=== PATIENT | female | born 1975 | race Caucasian/White ===

== ENCOUNTER 2018-05-03 05:30 | Day surgery (SDC) | payer OTHER ==
[2018-05-01 09:40] LABS: BASOPHILS 0.1 % (0-2); HEMATOCRIT 37.6 % (36.0-48.0); HEMOGLOBIN 12.5 g/dL (12-16); IMMATURE GRANULOCYTES 0.5 % (0-5); LYMPHOCYTES 26.8 % (15-50); MCH 28.3 pg (26.0-34.0); MCHC 33.2 g/dL (31.0-37.0); MCV 85.3 fL (80.0-100.0); MEAN PLATELET VOLUME 8.5 fL (7.4-10.4); MONOCYTES 4.5 % (2-11); NEUTROPHILS 66.1 % (40-80); RBC 4.41 10x6/uL (4.00-5.40); WBC 9.2 10x3/uL (4.8-10.8)
[2018-05-01 09:54] LABS: PLATELET COUNT 334 10x3/uL (130-400)
[~2018-05-03] VITALS: Ht 152.4 cm; Wt 81.2 kg
--- NOTE | ~2018-05-03 | OP ---
PATIENT NAME: ELISE BOSCH MEDICAL RECORD: [id number] :79 LOCATION:[facility] ADMISSION DATE: SURGEON: CHARISSE SIDDIQI MD DATE OF OPERATION: 05/03/2018 PREOPERATIVE DIAGNOSES: 1. Pelvic pain. 2. Menorrhagia. 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 PROCEDURES: Diagnostic laparoscopic and lysis of adhesions. SPECIMENS: None. ESTIMATED BLOOD LOSS: Minimal. INTRAVENOUS FLUIDS: Per anesthesia record. COMPLICATIONS: None apparent. DESCRIPTION OF PROCEDURE: The patient was taken to the operating room, where general anesthesia was achieved without any difficulty. The patient was then prepped and draped in normal sterile fashion in the dorsal lithotomy position in the [facility]. The bladder was drained of approximately 100 cc of clear yellow urine and a sponge stick was placed into the vagina for uterine elevation. Attention was then turned to the abdomen where a 5-mm incision was made infraumbilically and the bladeless trocar was used to enter the intraperitoneal space under direct visualization of the laparoscope. The patient was insufflated and opening pressure was found to be less than 10 mmHg. At this point, intraperitoneal placement was confirmed using the scope after the introducer was removed. Following insufflation, extensive adhesions of the omentum were noted on the previous Pfannenstiel incision site. A second bladeless trocar was then placed into the left lower quadrant under direct visualization of the laparoscope. The omentum was removed from the anterior abdominal wall revealing the uterus. The uterus was found to be densely adherent to the anterior abdominal wall obscuring the margins of the bladder. The adnexa were difficult to visualize due to the anatomic distortion. It was felt at this time due to the inability to evaluate the bladder fully and the anterior portion of the uterus that proceeding with hysteroscopy and ablation was not appropriate, was also noted at this time that this level of adhesive disease would necessitate a laparotomy, which the patient was not consented for. The dissection sites were then checked for hemostasis and found to be hemostatic. The patient was then desufflated and the trocars removed, and the skin repaired with 3-0 Monocryl in interrupted fashion. Sponge stick was removed from the vagina. The patient tolerated the procedure well, was transported to postanesthesia recovery stable without incident. TRANSINT:[id number] Voice Confirmation ID: [id number] DOCUMENT ID: [id number] OPERATIVE REPORT [id number] ELISE BOSCH, CHARISSE Williamson MD at 1716 CC: [id number] DICTATION DATE: 05/21/18 0653 [employer] CALIBRATOR: 05/21/18 0809 [facility] 05/03/18 [place] [id number] [place] [id number]
[~2018-05-03 05:30] MED LIST: ACETAMINOPHEN500 M1 PO; ALDOMET250 MG PO; IBUPROFEN800 MG PO; KLONOPIN0.5 MG PO; PERCOCET 10/3251 TA1 PO; PRENATAL COMPLE1 TAB PO; VYVANSE50 MG PO
[2018-05-03] MEDS ORDERED: VITAMIN C250 MG (06:02)
[2018-05-03] MEDS ORDERED: CO Q-10100 MG (06:03)
[2018-05-03] MEDS ORDERED: VITAMIN D31000 UNIT PO (06:03)
[2018-05-03] MEDS ORDERED: VENTOLIN HFA18 GM (06:06)
[2018-05-03 06:08] VITALS: BP 126/66; Ht 152.4 cm; Wt 81.2 kg
[2018-05-03 06:43] LABS: HCG URINE NEGATIVE (NEGATIVE)
[2018-05-03 15:55] LABS: CALC OSMOLALITY 273 mosm/kg (275-300); CALCIUM 9.3 mg/dL (8.5-10.1); CARBON DIOXIDE 26.5 mmol/L (21.0-32.0); CHLORIDE - SERUM 101 mmol/L (98-107); CREATININE - SERUM 0.6 mg/dL (0.6-1.3); GLUCOSE 103 mg/dL (74-106); POTASSIUM - SERUM 4.4 mmol/L (3.5-5.1); SODIUM 136 mmol/L (136-145); UREA NITROGEN 19 mg/dL (7-18); eGFR NON AFRICAN AMERICAN > 90 mL/min (90-120)
== END 2018-05-03 10:50 | disposition home or self-care (01) ==
LOC: D.OPS 05:30 → D.PAN 07:30 → D.OPS 07:30
PROVIDERS: Anesthesiology; Obstetrics & Gynecology
DX: N73.6 Female pelvic peritoneal adhesions (postinfective) (principal); N92.0 Excessive and frequent menstruation with regular cycle; I10 Essential (primary) hypertension; J45.990 Exercise induced bronchospasm; K76.0 Fatty (change of) liver, not elsewhere classified; F41.9 Anxiety disorder, unspecified; Z79.891 Long term (current) use of opiate analgesic; Z79.1 Long term (current) use of non-steroidal anti-inflammatories (NSAID); Z79.899 Other long term (current) drug therapy; Z88.8 Allergy status to other drugs, medicaments and biological substances